=== PATIENT | male | born 1980 | race African-American/Black ===

== ENCOUNTER 2016-10-03 12:37 | Emergency (ER) | payer OTHER ==
[2016-10-03 16:04] LABS: BILIRUBIN NEGATIVE (NEGATIVE); BLOOD TRACE-INTACT Ery/uL (NEGATIVE); CLARITY CLEAR (CLEAR); COLOR YELLOW (YELLOW); GLUCOSE (U) NORMAL (NORMAL); KETONE (U) NEGATIVE (NEGATIVE); LEUKOCYTES TRACE Leu/uL (NEGATIVE); NITRITE NEGATIVE (NEGATIVE); PROTEIN TRACE (LOW) mg/dL (NEGATIVE); UROBILINOGEN 0.2 mg/dL (0.2-1.0)
[2016-10-03 16:18] LABS: MUCOUS TRACE
[2016-10-03 16:19] LABS: BACTERIA TRACE
== END 2016-10-03 17:02 | disposition home or self-care (01) ==
LOC: FER 12:37
PROVIDERS: Internal Medicine
DX: N41.0 Acute prostatitis (principal)
CPT/HCPCS: 81001; 99283

== ENCOUNTER 2016-12-04 09:51 | Emergency (ER) | payer OTHER ==
[2016-12-04 10:10] LABS: BILIRUBIN NEGATIVE (NEGATIVE); BLOOD NEGATIVE Ery/uL (NEGATIVE); CLARITY CLEAR (CLEAR); COLOR YELLOW (YELLOW); GLUCOSE (U) NORMAL (NORMAL); KETONE (U) NEGATIVE (NEGATIVE); LEUKOCYTES TRACE Leu/uL (NEGATIVE); NITRITE NEGATIVE (NEGATIVE); PROTEIN TRACE (LOW) mg/dL (NEGATIVE); UROBILINOGEN 0.2 mg/dL (0.2-1.0)
[2016-12-04 10:14] LABS: BACTERIA TRACE
[2016-12-04 10:15] LABS: SQUAMOUS EPITHELIAL CELLS RARE
== END 2016-12-04 11:05 | disposition home or self-care (01) ==
LOC: FER 09:51
PROVIDERS: Internal Medicine
DX: N39.0 Urinary tract infection, site not specified (principal); F17.210 Nicotine dependence, cigarettes, uncomplicated; Z87.440 Personal history of urinary (tract) infections
CPT/HCPCS: 81001; 99283